=== PATIENT | female | born 1960 | race Hispanic/Latino ===

== ENCOUNTER → 2022-03-15 | Outpatient (CLI) | payer OTHER ==
[~2022-03-15] MED LIST: HYDROCODON-ACE1 EA12 PO; IBUPROFEN200 MG PO; MULTI-VITAMIN1 EACH PO; OMEPRAZOLE20 MG PO; TYLENOL325 MG PO
== END ==
LOC: MRI 12:30
PROVIDERS: ATTEND Internal Medicine
DX: M54.16 Radiculopathy, lumbar region (principal)
CPT/HCPCS: 72148

== ENCOUNTER 2022-03-24 07:27 | Observation (INO) | payer OTHER ==
[2022-03-23 09:16] LABS: BASOPHILS # (AUTO) 0.1 (0.0-0.1); BASOPHILS % 0.9 % (0.0-1.0); EOSINOPHILS # (AUTO) 0.1 (0.0-0.4); EOSINOPHILS % 1.4 % (0.0-6.0); HEMATOCRIT 41.3 % (34.2-44.1); HEMOGLOBIN 13.4 g/dL (12.0-16.0); LYMPHOCYTES # (AUTO) 2.8 (1.0-3.2); LYMPHOCYTES % 48.8 % (18.0-39.1); MEAN CORPUSCULAR HEMOGLOBIN 33.1 pg (28-32); MEAN CORPUSCULAR HGB CONC 32.4 g/dL (31-35); MONOCYTES # (AUTO) 0.4 (0.2-0.8); MONOCYTES % 6.2 % (4.4-11.3); NEUTROPHILS # (AUTO) 2.4 (2.1-6.9); NEUTROPHILS % 42.5 % (38.7-80.0); PLATELET COUNT 200 x10e3/uL (140-360); RED BLOOD COUNT 4.05 x10e6/uL (3.6-5.1); RED CELL DISTRIBUTION WIDTH 12.6 % (11.7-14.4)
[2022-03-23 09:42] LABS: ANION GAP 15.1 mmol/L (8-16); BLOOD UREA NITROGEN 14 mg/dL (7-26); BUN/CREATININE RATIO 17 (6-25); CALCIUM 9.7 mg/dL (8.4-10.2); CARBON DIOXIDE 22 mmol/L (22-29); CHLORIDE 110 mmol/L (98-107); CREATININE, SERUM 0.84 mg/dL (0.57-1.11); GLUCOSE 102 mg/dL (74-118); INR 0.93; POTASSIUM 4.1 mmol/L (3.5-5.1); PROTHROMBIN TIME 13.3 seconds (11.9-14.5); SODIUM 143 mmol/L (136-145)
[2022-03-23 09:43] LABS: PARTIAL THROMBOPLASTIN TIME 28.7 seconds (23.8-35.5)
[~2022-03-24] VITALS: Ht 157.5 cm; Wt 80.7 kg
[~2022-03-24 07:27] MED LIST changes: -HYDROCODON-ACE1 EA12 PO; +LIDOCAINE HCL/EPINEPHRINE/PF 10 ML VIAL ONE; +THROMBIN FOR SOLN 5,000 UNIT VIAL ONE; +Vancomycin IV 1 GM VIAL ONE
[2022-03-24] MEDS ORDERED: HYDROCODON-ACE1 EA12 PO (10:34)
[2022-03-24] MEDS ORDERED: ZOLPIDEM TARTRATE 5 MG TAB PO PRN (10:45)
[2022-03-24] MEDS ORDERED: MAGNESIUM/ALUMINUM/SIMETHICONE 30 ML UDC PO PRN (10:45)
[2022-03-24] MEDS ORDERED: ACETAMINOPHEN 325 MG TAB PO PRN (10:45)
[2022-03-24] MEDS ORDERED: PROMETHAZINE HCL (IM) 25 MG/ML VIAL IM PRN (10:45)
[2022-03-24] MEDS ORDERED: OXYCODONE/ACETAMINOPHEN 5-325 1 EACH TABLET PO PRN (10:45)
[2022-03-24] MEDS ORDERED: CARISOPRODOL 350 MG TAB PO PRN (10:45)
[2022-03-24] MEDS ORDERED: ONDANSETRON HCL INJ 2MG/ML 2ML 2 MG/ML VIAL IV PRN (10:45)
[2022-03-24] MEDS ORDERED: HYDROMORPHONE 2MG/ML 2 MG/ML ML IV PRN (10:45)
[2022-03-24] MEDS ORDERED: MORPHINE SULFATE 5 MG/ML VIAL IM PRN (10:45)
[2022-03-24] MEDS ORDERED: LIDOCAINE HCL 2% LOCAL INJ 5 ML SDV VIAL INJ ONE (12:55)
[2022-03-24] MEDS ORDERED: ONDANSETRON HCL INJ 2MG/ML 2ML 2 MG/ML VIAL ONE (12:55)
[2022-03-24] MEDS ORDERED: GLYCOPYRROLATE INJ 0.2 MG/ML VIAL ONE (12:55)
[2022-03-24] MEDS ORDERED: POVIDONE IODINE 0.05% 0.05 % ML PO ONE (12:55)
[2022-03-24] MEDS ORDERED: DEXAMETHASONE SOD PHOS INJ 4 MG/ML SDV ONE (12:55)
[2022-03-24] MEDS ORDERED: PROPOFOL IV EMULSION 10 MG/ML 20 ML VIAL ONE (12:55)
[2022-03-24] MEDS ORDERED: KETOROLAC TROMETHAMINE 30 MG/ML VIAL ONE (12:55)
[2022-03-24] MEDS ORDERED: METHOCARBAMOL 100MG/1ML 10ML VIAL ONE (12:55)
[2022-03-24] MEDS ORDERED: SEVOFLURANE INHAL SOLN 250 ML PEN BTL ONE (12:55)
[2022-03-24] MEDS ORDERED: ACETAMINOPHEN 1000 MG/100 ML IV ONE (12:55)
[2022-03-24 13:05] VITALS: BP_SYST 116; BP_SYST 126; BP_DIAS 59; BP_DIAS 62
[2022-03-24] MEDS ORDERED: Morphine 10mg syringe 10 MG/ML INJ ONE (13:07)
[2022-03-24] MEDS ORDERED: MIDAZOLAM HCL 2 MG/2 ML VIAL ONE (13:07)
[2022-03-24] MEDS: LACTATED RINGER'S 1,000 ML IV SCH (13:42)
[2022-03-24 16:20] VITALS: BP 126/62
[2022-03-24 20:00] VITALS: BP 134/61
[2022-03-25] VITALS: BP 134/61
[2022-03-25] MEDS: LACTATED RINGER'S 1,000 ML IV SCH ×2 (05:19→05:20)
[2022-03-25 06:12] VITALS: BP 116/54
[2022-03-25] MEDS ORDERED: PANTOPRAZOLE SOD 40 MG TABEC PO SCH (07:30)
[2022-03-25 08:00] VITALS: BP 129/62
[2022-03-25] MEDS ORDERED: MULTIVITAMINS/MINERALS TAB PO SCH (09:00)
== END 2022-03-25 08:48 | disposition home or self-care (01) ==
LOC: OR 07:27 → PACU V 10:52 → MED/SURG 13:08
PROVIDERS: ADMIT Neurological Surgery; ATTEND Neurological Surgery
DX: M51.16 Intervertebral disc disorders with radiculopathy, lumbar region (principal); M48.02 Spinal stenosis, cervical region; Z20.822 Contact with and (suspected) exposure to COVID-19; Z01.818 Encounter for other preprocedural examination; E78.5 Hyperlipidemia, unspecified
CPT/HCPCS: 0223U; 36415; 63047; 71046; 72020; 80048; 85025; 85610; 85730; 86850; 86900; 88304; 88311; 93005; G0378 ×2; J0131; J0690 ×2; J1100; J1885; J2001; J2250; J2270; J2405; J2550; J2704; J2800; J3370; J7121; S0164